=== PATIENT | male | born 1980 | race Caucasian/White ===

== ENCOUNTER 2017-02-07 16:16 | Inpatient (IN) | payer OTHER, BC ==
[2017-02-07] MEDS ORDERED: RX INFO: IV CONTRAST WAS GIVEN 1 EACH MISC MISCELLANE PRN (16:32)
[2017-02-07] MEDS ORDERED: fentaNYL (PF) 50 MCG/ML 2 ML AMP IV STA ×2 (16:33→17:57)
[2017-02-07] MEDS ORDERED: DIPH,PERTUS(ACELL)TETVAC-LF 0.5 ML VIAL IM ONE (16:34)
[2017-02-07 16:42] LABS: Aty Lym Flag Slight; CH 30.2; CHCM 34.6; RDW 13.1 % (11.5-15.5)
[2017-02-07 16:51] LABS: ALT 31 U/L (21-72); AST 33 U/L (17-59); Alcohol <10 mg/dL; Alkaline Phosphatase 46 U/L (38-126); Amylase 49 U/L (30-110); Anion Gap 12 mmol/L; Blood Urea Nitrogen 16 mg/dL (9-20); Carbon Dioxide 23 mmol/L (22-30); Chloride 106 mmol/L (98-107); Glucose 109 mg/dL (74-99); Non-African American GFR(MDRD) >60 (>60 ml/min/1.73 sqM); Sodium 141 mmol/L (137-145); Total Bilirubin 0.6 mg/dL (0.2-1.3); Total Protein 6.8 g/dL (6.3-8.2)
[2017-02-07 17:00] LABS: Creatine Kinase 85 U/L (55-170)
[2017-02-07 17:04] LABS: Partial Thromboplastin Time 22.3 sec (22.0-30.0); Prothrombin Time 10.6 sec (9.0-12.0)
[2017-02-07 17:07] LABS: HCT 43.9 % (39.0-53.0); HDW 2.67; HGB 14.9 gm/dL (13.0-17.5); MCH 29.7 pg (25.0-35.0); MCHC 33.9 g/dL (31.0-37.0); MCV 87.6 fL (80.0-100.0); Mean Platelet Volume 6.5; RBC 5.02 m/uL (4.30-5.90); WBC 7.7 k/uL (3.8-10.6); WBC (Perox) 7.42
[2017-02-07 17:13] LABS: Creatine Kinase MB 0.4 ng/mL (0.0-2.4); Troponin I <0.012 ng/mL (0.000-0.034)
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
[2017-02-07] MEDS ORDERED: ONDANSETRON 4 MG/2 ML VIAL IVP STA (18:10)
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
--- NOTE | 2017-02-07 18:26 | XR ---
EXAMINATION TYPE: XR tibia fibula RT DATE OF EXAM: 02/07/2017 6:13 PM COMPARISON: None HISTORY: Pain TECHNIQUE: 4 views FINDINGS: There is nondisplaced fracture of the distal fibula. There is no dislocation. Knee joint is intact. IMPRESSION: Nondisplaced oblique fracture distal fibula.
--- NOTE | 2017-02-07 18:27 | XR ---
EXAMINATION TYPE: XR foot limited RT DATE OF EXAM: 02/07/2017 6:13 PM COMPARISON: NONE HISTORY: Pain TECHNIQUE: 2 views FINDINGS: Metatarsals are intact. I see no fracture nor dislocation. Toes are intact. Distal fibula f racture is noted. IMPRESSION: Fibula fracture. No acute abnormality of the right foot.
--- NOTE | 2017-02-07 18:30 | XR ---
EXAMINATION TYPE: XR elbow complete LT DATE OF EXAM: 02/07/2017 6:13 PM COMPARISON: NONE HISTORY: Elbow pain TECHNIQUE: 3 views FINDINGS: I see no fracture nor dislocation. Joint spaces are normal. There is no sign of elbow joint effusion. IMPRESSION: Negative left elbow exam.
[2017-02-07] MEDS ORDERED: NALOXONE 0.4 MG/ML 1 ML VIAL IV PRN (18:59)
[2017-02-07] MEDS ORDERED: ONDANSETRON 4 MG/2 ML VIAL IVP PRN (18:59)
[2017-02-07 19:10] LABS: Add Differential Manual Differential
[2017-02-07 19:13] LABS: Manual Review Performed; Nucleated Red Blood Cells 0 /100 WBC (0-0); Total Cells Counted 100
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
[2017-02-07] MEDS: SODIUM CHLORIDE 0.9% 1,000 ML IV SCH (19:37)
[2017-02-07] MEDS: HYDROmorphone 1 MG/ML 1 ML SYRINGE IV PRN ×2 (19:38→21:32)
[2017-02-07 21:40] VITALS: BMI 28.8
[2017-02-07 22:31] LABS: Aty Lym Flag Slight; CH 29.9; CHCM 34.2; HCT 43.3 % (39.0-53.0); HDW 2.67; HGB 14.8 gm/dL (13.0-17.5); MCH 29.9 pg (25.0-35.0); MCHC 34.1 g/dL (31.0-37.0); MCV 87.7 fL (80.0-100.0); Mean Platelet Volume 6.6; RBC 4.94 m/uL (4.30-5.90); RDW 12.9 % (11.5-15.5); WBC 13.3 k/uL (3.8-10.6); WBC (Perox) 13.35
[2017-02-07 23:40] LABS: Add Differential Manual Differential
[2017-02-07 23:44] LABS: Nucleated Red Blood Cells 0 /100 WBC (0-0); Total Cells Counted 100
[2017-02-07 23:45] LABS: Manual Review Performed
[2017-02-07 23:55] LABS: Appearance,Urine Clear (Clear); Bilirubin,Urine Negative (Negative); Glucose,Urine (UA) Negative (Negative); Ketones,Urine Negative (Negative); Leukocyte Esterase,Urine Negative (Negative); Mucus,Urine Rare /hpf; Nitrite,Urine Negative (Negative); PH, Urine 5.5 (5.0-8.0); Particle Count 4086; Protein,Urine 1+ (Negative); RBC,Urine 12 /hpf (0-5); UA Billing (MACRO vs. MICRO) MICRO; Urobilinogen,Urine <2.0 mg/dL (<2.0); WBC,Urine 7 /hpf (0-5)
[2017-02-08] MEDS: HYDROmorphone 1 MG/ML 1 ML SYRINGE IV PRN ×8 (00:21→23:04)
[2017-02-08] MEDS: SODIUM CHLORIDE 0.9% 1,000 ML IV SCH ×2 (05:36→16:49)
[2017-02-08 06:50] LABS: Anion Gap 11 mmol/L; Blood Urea Nitrogen 13 mg/dL (9-20); Calcium 8.8 mg/dL (8.4-10.2); Carbon Dioxide 23 mmol/L (22-30); Chloride 104 mmol/L (98-107); Glucose 113 mg/dL (74-99); Non-African American GFR(MDRD) >60 (>60 ml/min/1.73 sqM); Sodium 138 mmol/L (137-145)
[2017-02-08 07:24] LABS: Aty Lym Flag Slight; CHCM 34.3; HDW 2.63; HGB 13.7 gm/dL (13.0-17.5); MCH 29.5 pg (25.0-35.0); MCHC 33.5 g/dL (31.0-37.0); MCV 87.9 fL (80.0-100.0); Mean Platelet Volume 6.6; RBC 4.66 m/uL (4.30-5.90); RDW 13.2 % (11.5-15.5); WBC 8.8 k/uL (3.8-10.6); WBC (Perox) 9.01
[2017-02-08] MEDS: ACETAMINOPHEN TAB 500 MG TAB PO PRN ×2 (07:54→14:34)
[2017-02-08 08:36] LABS: Add Differential Manual Differential
[2017-02-08 08:38] LABS: Manual Review Performed; Nucleated Red Blood Cells 0 /100 WBC (0-0); Total Cells Counted 100
[2017-02-08 08:39] LABS: RBC Morphology Normal
[2017-02-08 11:52] LABS: Aty Lym Flag Slight; CHCM 34.4; HCT 39.7 % (39.0-53.0); HDW 2.66; HGB 13.1 gm/dL (13.0-17.5); MCHC 33.1 g/dL (31.0-37.0); MCV 87.5 fL (80.0-100.0); Mean Platelet Volume 6.8; RBC 4.53 m/uL (4.30-5.90); RDW 13.1 % (11.5-15.5); WBC 7.2 k/uL (3.8-10.6); WBC (Perox) 8.31
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
[2017-02-08 12:58] LABS: Add Differential Manual Differential
[2017-02-08 13:00] LABS: Manual Review Performed; Nucleated Red Blood Cells 0 /100 WBC (0-0); RBC Morphology Normal; Total Cells Counted 100
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
[2017-02-08] MEDS: KETOROLAC 30 MG/ML 1 ML VIAL IVP PRN ×2 (15:45→21:58)
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
[2017-02-08 17:56] LABS: Aty Lym Flag Slight; CH 30.1; CHCM 34.6; HCT 38.9 % (39.0-53.0); HDW 2.69; HGB 13.2 gm/dL (13.0-17.5); MCH 29.6 pg (25.0-35.0); MCHC 33.9 g/dL (31.0-37.0); MCV 87.1 fL (80.0-100.0); RBC 4.46 m/uL (4.30-5.90); RDW 13.2 % (11.5-15.5); WBC 6.6 k/uL (3.8-10.6); WBC (Perox) 7.41
[2017-02-08 18:31] LABS: Add Differential Manual Differential
[2017-02-08 18:34] LABS: Nucleated Red Blood Cells 0 /100 WBC (0-0); Total Cells Counted 100
[2017-02-08 18:35] LABS: Manual Review Performed; RBC Morphology Normal
[2017-02-08 20:13] VITALS: RESP 18
[2017-02-08] MEDS: FAMOTIDINE 20 MG TAB PO SCH (23:04)
[2017-02-09 00:45] LABS: Aty Lym Flag Slight; CHCM 34.3; HCT 37.2 % (39.0-53.0); HDW 2.65; HGB 12.7 gm/dL (13.0-17.5); MCHC 34.2 g/dL (31.0-37.0); MCV 87.7 fL (80.0-100.0); Mean Platelet Volume 7.3; RBC 4.24 m/uL (4.30-5.90); RDW 13.1 % (11.5-15.5); WBC 6.2 k/uL (3.8-10.6); WBC (Perox) 6.29
[2017-02-09 01:12] LABS: Add Differential Manual Differential
[2017-02-09 01:14] LABS: Manual Review Performed; Nucleated Red Blood Cells 0 /100 WBC (0-0); Reactive Lymphocytes Present; Total Cells Counted 100
[2017-02-09] MEDS: HYDROmorphone 1 MG/ML 1 ML SYRINGE IV PRN ×2 (02:42→05:23)
[2017-02-09] MEDS: SODIUM CHLORIDE 0.9% 1,000 ML IV SCH ×2 (05:25→12:53)
[2017-02-09 06:46] LABS: Aty Lym Flag Slight; CHCM 34.3; HCT 36.8 % (39.0-53.0); HDW 2.68; HGB 12.4 gm/dL (13.0-17.5); MCH 29.7 pg (25.0-35.0); MCHC 33.8 g/dL (31.0-37.0); MCV 87.7 fL (80.0-100.0); Mean Platelet Volume 6.6; RDW 13.1 % (11.5-15.5); WBC (Perox) 6.36
[2017-02-09 06:59] LABS: Anion Gap 7 mmol/L; Blood Urea Nitrogen 12 mg/dL (9-20); Calcium 8.2 mg/dL (8.4-10.2); Carbon Dioxide 25 mmol/L (22-30); Chloride 105 mmol/L (98-107); Glucose 85 mg/dL (74-99); Non-African American GFR(MDRD) >60 (>60 ml/min/1.73 sqM); Sodium 137 mmol/L (137-145)
[2017-02-09 07:09] LABS: Add Differential Manual Differential
[2017-02-09 07:15] LABS: Manual Review Performed; Nucleated Red Blood Cells 0 /100 WBC (0-0); Total Cells Counted 100
[2017-02-09] MEDS: KETOROLAC 30 MG/ML 1 ML VIAL IVP PRN (07:33)
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
[2017-02-09] MEDS: FAMOTIDINE 20 MG TAB PO SCH (09:30)
[2017-02-09] MEDS: HYDROcodone/APAP 7.5-325MG 1 EACH TAB PO PRN ×3 (09:31→16:07)
[2017-02-09 13:10] LABS: Aty Lym Flag Slight; CH 30.1; CHCM 34.5; HCT 39.1 % (39.0-53.0); HDW 2.67; HGB 13.3 gm/dL (13.0-17.5); MCH 29.8 pg (25.0-35.0); MCV 87.5 fL (80.0-100.0); Mean Platelet Volume 6.4; RBC 4.47 m/uL (4.30-5.90); WBC (Perox) 6.45
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
[2017-02-09 14:41] LABS: Add Differential Manual Differential
[2017-02-09 14:45] LABS: Nucleated Red Blood Cells 0 /100 WBC (0-0); Total Cells Counted 100
[2017-02-09 16:00] VITALS: BP 123/71; PULSE 83; TEMP 98.5
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
== END 2017-02-09 16:22 | disposition home or self-care (01) | DRG 815 ==
LOC: EC 16:16 → 6SEL 19:02
PROVIDERS: ADMIT Surgery; ATTEND Surgery
PROC: 3E0234Z Introduction of Serum, Toxoid and Vaccine into Muscle, Percutaneous Approach (ICD-10-PCS; principal; 2017-02-07)
PROC: 2W3LX1Z Immobilization of Right Lower Extremity using Splint (ICD-10-PCS; 2017-02-07)
PROC: 0HQ6XZZ Repair Back Skin, External Approach (ICD-10-PCS; 2017-02-07)
PROC: 0HQEXZZ Repair Left Lower Arm Skin, External Approach (ICD-10-PCS; 2017-02-07)
DX: S36.039A Unspecified laceration of spleen, initial encounter (principal); S32.039A Unspecified fracture of third lumbar vertebra, initial encounter for closed fracture; S21.212A Laceration without foreign body of left back wall of thorax without penetration into thoracic cavity, initial encounter; S32.049A Unspecified fracture of fourth lumbar vertebra, initial encounter for closed fracture; S82.61XA Displaced fracture of lateral malleolus of right fibula, initial encounter for closed fracture; S51.012A Laceration without foreign body of left elbow, initial encounter; R40.2410 Glasgow coma scale score 13-15, unspecified time; J32.9 Chronic sinusitis, unspecified; H91.93 Unspecified hearing loss, bilateral; Z88.0 Allergy status to penicillin; Z86.69 Personal history of other diseases of the nervous system and sense organs; Z23 Encounter for immunization; Z82.49 Family history of ischemic heart disease and other diseases of the circulatory system; Z88.5 Allergy status to narcotic agent; Z87.828 Personal history of other (healed) physical injury and trauma; W23.0XXA Caught, crushed, jammed, or pinched between moving objects, initial encounter; Y92.512 Supermarket, store or market as the place of occurrence of the external cause
CPT/HCPCS: 36415; 70450; 71010; 71260; 72125; 72170; 74177; 80048; 80053; 80306; 80320; 81001; 82150; 82550; 82553; 83690; 84484; 85025; 85610; 85730; 86850; 86900; 86901; 90471; 90715; 93005; 96361; 96374; 96375; 96376; 99291

== ENCOUNTER → 2017-04-20 | Outpatient (CLI) | payer OTHER, BC ==
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
== END | disposition home or self-care (01) ==
LOC: RADMRIMAIN 13:43
PROVIDERS: ATTEND Physical Medicine & Rehabilitation
DX: R90.82 White matter disease, unspecified (principal); F07.81 Postconcussional syndrome
CPT/HCPCS: 70551

== ENCOUNTER → 2017-09-16 | Outpatient (CLI) | payer OTHER, BC ==
--- NOTE | 2017-09-16 10:52 | CT ---
EXAMINATION TYPE: CT iac wo con DATE OF EXAM: 09/16/2017 COMPARISON: CT brain 02/07/2017 HISTORY: 36-year-old male question prior right-sided temporal bone fracture. Patient with headaches, right-sided hearing loss, and bilateral tinnitus. CT DLP: 142.70 mGycm Automated exposure control for dose reduction was used. TECHNIQUE: Contiguous high-resolution axial scanning of the temporal bones performed without contras t. Coronal reformatted images obtained. FINDINGS: There is no abnormality of visualized intracranial structures. The skull base appears normal. Small amount of cerumen within the left external auditory canal. The middle ear cavities and mastoid air cells are well pneumatized. There is no abnormality of middle ear ossicles. The round and oval windows are normal. There is no abnormality of bony labyrinths. The vestibular aqueduct are well visualized. The facial nerve canal is normal bilaterally. The internal auditory canal and meati are symmetrical bilaterally. There is no evidence of fractures. Mild to moderate mucosal thickening right greater than left sphenoid sinuses and right ethmoid air ce lls. Orbits and globes appear intact. Reformatted images confirm above findings. IMPRESSION: Aside from small amount of cerumen in the left external auditory canal and mild to moderate sphenoid and right ethmoid sinus disease, unremarkable temporal bone CT. No evidence for temporal bone fractur e.
== END | disposition home or self-care (01) ==
LOC: RADCTMAIN 09:43
PROVIDERS: ATTEND Otolaryngology
DX: J34.89 Other specified disorders of nose and nasal sinuses (principal); H61.22 Impacted cerumen, left ear
CPT/HCPCS: 70480

== ENCOUNTER → 2022-02-04 | Outpatient (CLI) | payer OTHER ==
--- NOTE | 2022-02-04 10:11 | MR ---
MR right elbow HISTORY: Right elbow pain, trauma 4 weeks prior with pain Under multisequence imaging obtained through the right elbow, no comparisons are not motion is presen t on the exam, artifact There is abnormal signal along the biceps, musculotendinous junction, the biceps tendon shows tear, d iscontinuity in abnormal thickening peripherally abnormal increased intrinsic signal, redundant appea tonya. Triceps tendon shows a normal insertion. There is no evident elbow joint effusion. Subcutaneous edema changes present. Cartilage signal is normal. Bone marrow signal is normal. IMPRESSION: Biceps tendon tear with retraction.
== END | disposition home or self-care (01) ==
LOC: RADMRIMAIN 06:24
PROVIDERS: ATTEND Orthopaedic Surgery Hand Surgery
DX: S46.211A Strain of muscle, fascia and tendon of other parts of biceps, right arm, initial encounter (principal); X58.XXXA Exposure to other specified factors, initial encounter

== ENCOUNTER → 2022-02-06 | Outpatient (CLI) | payer OTHER ==
[2022-02-06 23:48] LABS: Anion Gap 14.4 mmol/L (10.00-18.00); Carbon Dioxide 20.7 mmol/L (20.0-27.5); Potassium 3.7 mmol/L (3.5-5.5)
[2022-02-06 23:49] LABS: Basophils # (A) 0.02 X 10*3/uL (0.00-0.10); Basophils % (A) 0.3 %; Eosinophils # (A) 0.13 X 10*3/uL (0.04-0.35); Eosinophils % (A) 2.2 %; HCT 46.4 % (39.6-50.0); HGB 15.8 g/dL (13.0-17.0); Immature Grans, Automated 0.5 %; Lymphocytes # (A) 1.82 X 10*3/uL (0.90-5.00); Lymphocytes % (A) 30.2 %; MCHC 34.1 g/dL (32.0-37.0); MCV 88.2 fL (80.0-97.0); Mean Platelet Volume 9.8 fL (9.5-12.2); Monocytes # (A) 0.46 X 10*3/uL (0.20-1.00); Monocytes % (A) 7.6 %; NRBC Per 100 WBC 0 /100 WBCS (0.0-0.0); Neutrophils # (A) 3.56 X 10*3/uL (1.80-7.70); Neutrophils % (A) 59.2 %; Platelet Count 246 X 10*3/uL (140-440); RBC 5.26 X 10*6/uL (4.40-5.60); RDW 11.9 % (11.5-14.5); WBC 6.02 X 10*3/uL (4.50-10.00)
== END | disposition home or self-care (01) ==
LOC: LABPAT 13:22
PROVIDERS: ATTEND Orthopaedic Surgery Hand Surgery
DX: Z01.812 Encounter for preprocedural laboratory examination (principal); S46.291A Other injury of muscle, fascia and tendon of other parts of biceps, right arm, initial encounter; X58.XXXA Exposure to other specified factors, initial encounter
CPT/HCPCS: 80051; 85025

== ENCOUNTER 2022-02-12 06:31 | Day surgery (SDC) | payer OTHER ==
--- NOTE | 2022-02-09 10:30 | P.HPOR ---
History of Present Illness H&P Date: 02/09/22 Chief Complaint: Right distal biceps tendon rupture Subjective: This is a 41 year old male that presents today for initial evaluation regarding a right elbow injury that occurred on 01/06/22, patient was lifting a washer and suddenly felt a pop. He was seen at urgent care and xrays were taken which revealed no abnormality. He has bruising and swelling along the medial elbow and arm that has since started to resolve. He has noticed pain/weakness with s upination but is able to flex the elbow at this point. He denies any paresthesias. He is currently unemployed but typically works construction. Physical Examination: RUE: AIN/PIN/Radial/Ulnar/Median motor intact. Radial/Ulnar/Median SILT. 2+/4 Radial/Ulnar pulses palpated. Positive hook test. Mild TTP in antecubital fossa with sustained supination. Lacertus palpated. and appears intact. Impression: 1.) Right distal biceps tendon rupture. Plan: Diagnosis and treatment options were discussed with the patient. We reviewed risks and benefits of operative vs non operative treatment and discussed the functional limitations that non-operative treatment would entail including possible loss of sustained supination strength and flexion strength. I recommend MRI of the elbow to evaluate for partial vs full distal biceps tendon tear. We discussed the complexity of the injury due to the delayed presentation now that he his 4 weeks out from the day of injury. Urgent MRI is ordered and I will contact the patient regarding results to discuss possible treatment options Please CC notes to Dr. Erwin Update MRI of right elbow as obtained showing complete tear of distal biceps tendon with retraction. Risks and benefits of operative vs non operative management were discussed with patient on phone call on 02/05/22 and patient wishes to proceed with surgical intervention. Risks and benefit of surgery including bleeding, infection, damage to surrounding tissue, need for further surgery, paresthesias, and residual numbness were discussed and the patient wished to go forward with surgery. He will be scheduled for a right distal biceps tendon repair utilizing Arthrex distal biceps suture button tension slide technique. -Carter Sinha DO Orthopedic Hand/Upper Extremity Surgeon Past Medical History Past Medical History: Hearing Disorder / Deafness Additional Past Medical History / Comment(s): HX OF VERTIGO, LEFT INGUINAL HERNIA., [place] DAHIANA History of Any Multi-Drug Resistant Organisms: None Reported Additional Past Surgical History / Comment(s): TUBES IN EARS, REPAIR RT EAR DRUM, RT ING HERNIA (CHILD), FINGER REATTACHED. Past Anesthesia/Blood Transfusion Reactions: No Reported Reaction Additional Past Anesthesia/Blood Transfusion Reaction / Comment(s): HX OF VERTIGO Past Psychological History: No Psychological Hx Reported Past Alcohol Use History: Rare Past Drug Use History: None Reported - Past Family History Father Family Medical History: AFIB Additional Family Medical History / Comment(s): ablation Mother Family Medical History: Coronary Artery Disease (CAD) Brother(s) Family Medical History: Myocardial Infarction ([place]) Medications and Allergies Home Medications Medication Instructions Recorded Confirmed Type Acetaminophen Tab [Tylenol Tab] 1,000 mg PO Q6HR PRN 02/07/17 02/07/17 History HYDROcodone/APAP 7.5-325MG [[place] 1 each PO Q4H PRN #60 tab 02/09/17 Rx 7.5] Allergies Allergy/AdvReac Type Severity Reaction Status Date / Time Penicillins Allergy Unknown Unknown Verified 02/07/17 17:14 Childhood codeine AdvReac Unknown Itching Verified 02/07/17 17:14 meperidine HCl [From Demerol] AdvReac Unknown Itching Verified 02/07/17 17:14 Physical Examination Osteopathic Statement: *. No significant issues noted on an osteopathic structural exam other than those noted in the History and Physical/Consult.
[2022-02-10 14:31] VITALS: BMI 31.3
[2022-02-12] MEDS ORDERED: MIDAZOLAM 2 MG/2 ML VIAL IV PRN (06:45)
[2022-02-12] MEDS ORDERED: DEXAMETHASONE SOD PHOSPHATE 4 MG/ML 1 ML VIAL IV ONE (06:45)
[2022-02-12] MEDS ORDERED: KETOROLAC 15 MG/ML 1 ML VIAL IVP SCH (06:45)
[2022-02-12] MEDS ORDERED: LACTATED RINGERS 1,000 ML IV SCH (06:45)
[2022-02-12] MEDS ORDERED: ONDANSETRON 4 MG/2 ML VIAL IVP ONE (06:45)
[2022-02-12] MEDS ORDERED: LIDOCAINE 1% (10MG/ML) FOR IV START INTRADERMA PRN (06:45)
[2022-02-12] MEDS ORDERED: METOCLOPRAMIDE 5 MG/ML 2 ML VIAL IVP PRN (07:00)
[2022-02-12] MEDS ORDERED: HYDROmorphone 0.5 MG/0.5 ML SYRINGE IVP PRN (07:00)
[2022-02-12] MEDS ORDERED: fentaNYL (PF) 50 MCG/ML 2 ML AMP IVP PRN (07:00)
[2022-02-12] MEDS ORDERED: LIDOCAINE 1% (10MG/ML) FOR IV START SQ ONE (07:10)
[2022-02-12] MEDS ORDERED: fentaNYL (PF) 50 MCG/ML 2 ML AMP IVP ONE (07:42)
[2022-02-12] MEDS ORDERED: MIDAZOLAM 2 MG/2 ML VIAL IV ONE (07:42)
[2022-02-12] MEDS ORDERED: BUPIVACAINE (PF) 0.25% 30 ML VIAL MISCELLANE ONE (07:53)
[2022-02-12] MEDS ORDERED: fentaNYL (PF) 50 MCG/ML 2 ML AMP ONE (07:54)
[2022-02-12] MEDS ORDERED: ROPIVACAINE 5 MG/ML 30 ML VIAL ONE (07:54)
[2022-02-12] MEDS ORDERED: PROPOFOL 10 MG/ML 20 ML VIAL IV ONE (07:54)
--- NOTE | 2022-02-12 09:54 | P.ANPRN ---
Procedure Note - Anesthesia - Nerve Block Performed Right Interscalene Single Time Out Performed: Yes ([id number]) Date of Procedure: 02/12/22 Procedure Start Time: 07:42 Procedure Stop Time: 07:48 Location of Patient: PreOp Indication: Acute Post-Operative Pain, Requested by Surgeon Specifically requested for management of pain by DrMable: Carter Sinha Sedation Type: Sedate with meaningful contact maintained Preparation: Sterile Prep Position: Supine Catheter: None Needle Types: Pajunk Needle Gauge: 21 (4in) Ultrasound used to visualize needle placement: Yes Ultrasound used to observe medication spread: Yes Injectate: 0.5% Ropivacaine (see comment for volume) (30cc) Blood Aspirated: No Pain Paresthesia on Injection Noted: No Resistance on Injection: Normal Image Stored and Saved: Yes Events: Uneventful and Well Tolerated
[2022-02-12 10:20] VITALS: TEMP 97.5
[2022-02-12 10:21] VITALS: RESP 16
[2022-02-12] MEDS ORDERED: KETOROLAC 15 MG/ML 1 ML VIAL IVP ONE (10:26)
[2022-02-12 11:15] VITALS: BP 128/88; PULSE 82
--- NOTE | 2022-02-12 18:11 | P.OP ---
Date of Procedure: 02/12/22 Preoperative Diagnosis: Right distal biceps tendon rupture, chronic. Postoperative Diagnosis: Right distal biceps tendon rupture, chronic. Procedure(s) Performed: Reinsertion of right distal biceps tendon rupture with lacertus fibrosis autograft. [id number] Implants: Arthrex distal biceps cortical button Anesthesia: ROBERT, regional Surgeon: Carter Sinha Assistant Production Manager #1: Romulo Lara Estimated Blood Loss (ml): 10 Pathology: none sent Condition: stable Disposition: PACU Description of Procedure: This is a 41 year old male with a history of a right distal biceps tendon rupture that occurred 1 month prior to original presentation after living a heavy object. He presents today for a right distal biceps tendon avulsion repair. Risks and benefits of surgery were discussed with the patient including bleeding, damage to surrounding tissue, infection, paresthesias, need for further surgery as well as risks of anesthesia including pulmonary embolism and even and the patient wished to proceed with surgical intervention. The patients was seen in the pre-operative area by myself. Consent and H&P were completed and updated. The correct extremity was marked in the pre-operative area by myself and all other questions were answered. Patient received an upper extremity nerve block by the department of anesthesia. He then was brought to the operating room by the department of anesthesia. He was transferred to the operative table and a rolling hand table was brought to the side of the operative extremity. The patient was then drifted off to sleep by the department of anesthesia. A nonsterile tourniquet was then applied to the operative extremity and the right upper extremity was then prepped and draped in normal sterile fashion. Pre-operative time out was performed indicating the correct patient, procedure and laterality. All in the room agreed. Pre-operative antibiotics were given prior to skin incision. The operative extremity was the exsanguinated with an esmarch bandage and the tourniquet was inflated to 250mmHg . 15 blade scalpel was used to make a 4cm transverse incision 3 cm distal to the anterior elbow antecubital fossa crease. Blunt dissection was then performed in subcutaneous tissues, retractors were placed taking care to not put excessive force laterally to avoid pressure on the LABCN. Seroma was identified and the distal end of the biceps tendon was identified retracted to the antecubital fossa with extensive adhesions formed to the surrounding vascular structures which were carefully dissected, the end of the tendon was was very degenerative looking and frayed, non vital edges were removed and the tip was then grasped with an Stacy clamp. Edges were trimmed of degenerative tissue to create a more profiled distal tip. Due to the amount of non-viable tenon remaining decision was made to augment with the lacertus fibrosis. The lacertus was detached from surrounding muscle and then wrapped around the distal biceps tendon creating additional length and bulk to the tendon. Lacertus was secured using multiple 0 Vicryl sutures. A number 2 looped fiberwire was then used to sequentially grasp the tendon starting 2.5cm proximal to the distal end. The last stitch was placed in a locking fashion. Tendon sizer was then utilized the distal tendon was able to fit through a 7mm hole. Attention was then brought back to the antecubital fossa and deeper dissection was taken down to the radial tuberosity. Tendon remnants were debrided carefully with rongeur. The forearm was then maximally supinated to reveal the bicipital tuberosity on the radius in order to move the PIN nerve as far radial as possible. A 3.2mm guide pin was then inserted bicortically into the radial tuberosity aimed 30 degrees ulnarly to avoid PIN damage. Correct placement was then confirmed on flouroscopy. A 8mm drill was then used to drill the near cortex only. The wound was then copiously irrigated. The free ends of the suture where then passed through the arthrex cortical button to engage the tension slide mechanism. Cortical button was placed into the button inserted and inserted through the drill hole and deployed. Tension was then applied to snug the cortical button against the dorsal radius confirming the button had flipped correctly. The free suture limbs were then tensioned to fully dock the tendon in the bone tunnel. A free needle was then used to pass one limb through the tendon and a knot was tied. Mini C arm was then used to confirm that the button had flipped. The wound was then irrigated. Closure was performed with interrupted 4-0 monocryl suture followed by a running subcuticular suture. Exofin glue was then applied to the wound. 4x4s, webril and a posterior splint with the elbow in slight flexion was applied. The tourniquet was let down and the hand had immediate normal perfusion. The patient was then woken and transferred to PACU in stable condition. Romulo DILLON was present for the case and aided in assistance in hardware placement and protection of vital neurovascular structures. Carter Sinha DO Orthopedic Hand/Upper Extremity Surgeon
== END 2022-02-12 11:41 | disposition home or self-care (01) ==
LOC: OR 06:31
PROVIDERS: ATTEND Orthopaedic Surgery Hand Surgery
DX: S46.211A Strain of muscle, fascia and tendon of other parts of biceps, right arm, initial encounter (principal); F90.1 Attention-deficit hyperactivity disorder, predominantly hyperactive type; K21.9 Gastro-esophageal reflux disease without esophagitis
CPT/HCPCS: 24342; 64415; 76942; C1713; J2250; J1100; J0690; J2405; J3010; J2795; J1885; J2704

== ENCOUNTER → 2022-11-20 | Outpatient (CLI) | payer OTHER ==
[2022-11-20 23:09] LABS: Basophils # (A) 0.04 X 10*3/uL (0.00-0.10); Basophils % (A) 0.6 %; Eosinophils # (A) 0.12 X 10*3/uL (0.04-0.35); Eosinophils % (A) 1.8 %; HCT 45.5 % (39.6-50.0); HGB 14.9 g/dL (13.0-17.0); Immature Grans, Automated 0.5 %; Lymphocytes # (A) 1.73 X 10*3/uL (0.90-5.00); Lymphocytes % (A) 26.5 %; MCH 28.8 pg (27.0-32.0); MCHC 32.7 g/dL (32.0-37.0); Mean Platelet Volume 9.2 fL (9.5-12.2); Monocytes # (A) 0.52 X 10*3/uL (0.20-1.00); NRBC Per 100 WBC 0 /100 WBCS (0.0-0.0); Neutrophils # (A) 4.08 X 10*3/uL (1.80-7.70); Neutrophils % (A) 62.6 %; Platelet Count 256 X 10*3/uL (140-440); RBC 5.17 X 10*6/uL (4.40-5.60); RDW 12.3 % (11.5-14.5); WBC 6.52 X 10*3/uL (4.50-10.00)
[2022-11-20 23:27] LABS: ALT 22 U/L (10-49); AST 15 U/L (14-35); African American GFR (CKD) 73.3 (60.0-200.0); Albumin 4.5 g/dL (3.8-4.9); Albumin/Globulin Ratio 2.26 (1.60-3.17); Alkaline Phosphatase 50 U/L (41-126); BUN/Creat Ratio 12.06 Ratio (12.00-20.00); Blood Urea Nitrogen 16.4 mg/dL (9.0-27.0); Calcium 9.3 mg/dL (8.7-10.3); Carbon Dioxide 24.2 mmol/L (20.0-27.5); Chloride 105 mmol/L (96-109); Glucose 101 mg/dL (70-110); LDL Cholesterol,Calculated 112.8 mg/dL (0.0-131.0); Non-African American GFR(CKD) 63.3 (60.0-200.0); Potassium 4.5 mmol/L (3.5-5.5); Sodium 139 mmol/L (135-145); Total Protein 6.5 g/dL (6.2-8.2)
== END | disposition home or self-care (01) ==
LOC: LABWHC1 14:20
PROVIDERS: ATTEND Internal Medicine
DX: Z00.01 Encounter for general adult medical examination with abnormal findings (principal); Z13.220 Encounter for screening for lipoid disorders; Z72.51 High risk heterosexual behavior
CPT/HCPCS: 36415; 80053; 80061; 84403; 85025

== ENCOUNTER 2023-06-16 09:18 | Emergency (ER) | payer OTHER ==
[2023-06-16] MEDS ORDERED: IBUPROFEN 600 MG TAB PO STA (10:22)
--- NOTE | 2023-06-16 10:57 | XR ---
EXAMINATION TYPE: XR chest 2V DATE OF EXAM: 06/16/2023 10:47 AM COMPARISON: Chest radiographs from 02/07/2017 TECHNIQUE: XR chest 2V Frontal and lateral views of the chest. CLINICAL INDICATION:Male, 42 years old with history of fever; FINDINGS: Lungs/Pleura: There is no evidence of pleural effusion, focal consolidation, or pneumothorax. Pulmonary vascularity: Unremarkable. Heart/mediastinum: Cardiomediastinal silhouette is unremarkable. Musculoskeletal: No acute osseous pathology. IMPRESSION: No acute cardiopulmonary disease/process.
--- NOTE | 2023-06-16 10:58 | ED ---
Fever HPI - General Chief Complaint: Fever Stated Complaint: Hot Cold Flashs, Body Aches Time Seen by Provider: 06/16/23 09:39 Source: patient, RN notes reviewed Mode of arrival: ambulatory Limitations: no limitations - History of Present Illness Initial Comments: 42-year-old male presents emergency Department with chief complaint of fever cough and cold-like symptoms. Patient states that since last 2 days. Patient states that he has bodyaches slight cough and mild sore throat. He denies any chest pain he does have a productive cough or shortness of breath no abdominal pain no flank pain denies any neck pain or neck stiffness. - Related Data Home Medications Medication Instructions Recorded Confirmed Dextroamphetamine/Amphetamine 30 mg PO BID 02/12/22 02/12/22 [Dextroamp-Amphetamin 30 mg Tab] Previous Rx's Medication Instructions Recorded HYDROcodone/APAP 7.5-325MG [[place] 1 tab PO Q6HR PRN 3 Days #24 tab 02/12/22 7.5-325] Allergies Allergy/AdvReac Type Severity Reaction Status Date / Time Penicillins Allergy Unknown Unknown Verified 06/16/23 09:33 Childhood codeine AdvReac Unknown Itching Verified 06/16/23 09:33 meperidine HCl [From Demerol] AdvReac Unknown Itching Verified 06/16/23 09:33 Review of Systems ROS Statement: Those systems with pertinent positive or pertinent negative responses have been documented in the HPI. ROS Other: All systems not noted in ROS Statement are negative. Past Medical History Past Medical History: Hearing Disorder / Deafness Additional Past Medical History / Comment(s): HX OF VERTIGO, LEFT INGUINAL HERNIA., [place], History of Any Multi-Drug Resistant Organisms: None Reported Past Surgical History: Orthopedic Surgery Additional Past Surgical History / Comment(s): TUBES IN EARS, REPAIR RT EAR DRUM, RT ING HERNIA (CHILD), FINGER REATTACHED. Past Anesthesia/Blood Transfusion Reactions: No Reported Reaction Additional Past Anesthesia/Blood Transfusion Reaction / Comment(s): HX OF VERTIGO Past Psychological History: No Psychological Hx Reported, Anxiety Smoking Status: Never smoker Past Alcohol Use History: None Reported Past Drug Use History: None Reported - Past Family History Father Family Medical History: AFIB Additional Family Medical History / Comment(s): ablation Mother Family Medical History: Cancer, Coronary Artery Disease (CAD) Brother(s) Family Medical History: Myocardial Infarction ([place]) General Exam Limitations: no limitations General appearance: alert, in no apparent distress Head exam: Present: atraumatic, normocephalic, normal inspection Eye exam: Present: normal appearance, PERRL, EOMI. Absent: scleral icterus, conjunctival injection, periorbital swelling ENT exam: Present: mucous membranes moist. Absent: normal exam, normal oropharynx (Erythema) Neck exam: Present: normal inspection, full ROM. Absent: tenderness, meningismus, lymphadenopathy Respiratory exam: Present: normal lung sounds bilaterally. Absent: respiratory distress, wheezes, rales, rhonchi, stridor Cardiovascular Exam: Present: normal rhythm, tachycardia, normal heart sounds. Absent: systolic murmur, diastolic murmur, rubs, gallop, clicks GI/Abdominal exam: Present: soft, normal bowel sounds. Absent: distended, tenderness, guarding, rebound, rigid Back exam: Absent: CVA tenderness (R), CVA tenderness (L) Neurological exam: Present: alert Course Vital Signs 06/16/23 06/16/23 06/16/23 09:26 09:42 11:11 Temperature 100.7 F H 98.3 F Pulse Rate 105 H Respiratory 18 16 Rate Blood Pressure 144/84 O2 Sat by Pulse 94 L Oximetry 06/16/23 11:39 Temperature 98.5 F Pulse Rate 93 Respiratory 18 Rate Blood Pressure 136/83 O2 Sat by Pulse 97 Oximetry Medical Decision Making - Medical Decision Making Was pt. sent in by a medical professional or institution (, PA, BUYER ASSISTANT, urgent care, hospital, or intermediate...) When possible be specific @ -Urgent care Did you speak to anyone other than the patient for history (EMS, parent, family, police, friend...)? What history was obtained from this source @ -No Did you review nursing and triage notes (agree or disagree)? Why? @ -I reviewed and agree with nursing and triage notes Were old charts reviewed (outside hosp., previous admission, EMS record, old EKG, old radiological studies, urgent care reports/EKG's, intermediate records)? Report findings @ -No old charts were reviewed Differential Diagnosis (chest pain, altered mental status, abdominal pain women, abdominal pain men, vaginal bleeding, weakness, fever, dyspnea, syncope, headache, dizziness, GI bleed, back pain, seizure, CVA, palpatations, mental health, musculoskeletal)? @ -Differential Fever: Pneumonia, viral URI, endocarditis, myocarditis, pericarditis, otitis, sinusitis, peritonsillar Abscess, retropharyngeal Abscess, epiglottitis, peritonitis, appendicitis, Evangelina cystitis, diverticulitis, hepatitis, colitis, UTI, PID, TOA, pyelonephritis, prostatitis, epididymitis, meningitis, encephalitis, pulmonary embolism, CVA, thyroid storm, pancreatitis, adrenal crisis, cavernous sinus thrombosis, this is not meant to be an all-inclusive list. le EKG interpreted by me (3pts min.). @ -None X-rays interpreted by me (1pt min.). @ -Chest x-ray shows no acute process. CT interpreted by me (1pt min.). @ -None done U/S interpreted by me (1pt. min.). @ -None done What testing was considered but not performed or refused? (CT, X-rays, U/S, labs)? Why? @ -Consider laboratory studies What meds were considered but not given or refused? Why? @ -None Did you discuss the management of the patient with other professionals (professionals i.e. , PA, BUYER ASSISTANT, lab, RT, psych nurse, dialysis social worker, financial intern, teacher, hazard mitigation officer, rehabilitation case coordinator)? Give summary @ -No Was smoking cessation discussed for >3mins.? @ -No Was critical care preformed (if so, how long)? @ -No Were there social determinants of health that impacted care today? How? (Homelessness, low income, unemployed, alcoholism, drug addiction, transportation, low edu. Level, literacy, decrease access to med. care, skilled nursing, rehab)? @ -No Was there de-escalation of care discussed even if they declined (Discuss DNR or withdrawal of care, Hospice)? DNR status @ -No What co-morbidities impacted this encounter? (DM, HTN, Smoking, COPD, CAD, Cancer, CVA, ARF, Chemo, Hep., AIDS, mental health diagnosis, sleep apnea, morbid obesity)? @ -None Was patient admitted / discharged? Hospital course, mention meds given and route, prescriptions, significant lab abnormalities, going to OR and other pertinent info. @ -Discharge patient is covid 19 positive, strep negative x-rays unremarkable. Vitals are stable. Patient is discharged with supportive treatment return parameters were discussed. Undiagnosed new problem with uncertain prognosis? @ -No Drug Therapy requiring intensive monitoring for toxicity (Heparin, Nitro, Insulin, Cardizem)? @ -No Were any procedures done? @ -No Diagnosis/symptom? @ -covid 19 Acute, or Chronic, or Acute on Chronic? @ -Acute Uncomplicated (without systemic symptoms) or Complicated (systemic symptoms)? @ -complicated Side effects of treatment? @ -No Exacerbation, Progression, or Severe Exacerbation? @ -No Poses a threat to life or bodily function? How? (Chest pain, [place], [place], pneumonia, PE, COPD, DKA, ARF, appy, cholecystitis, CVA, Diverticulitis, Homicidal, Suicidal, threat to staff... and all critical care pts) @ -No - Lab Data Lab Results 06/16/23 06/16/23 Range/Units 10:33 10:33 Coronavirus (PCR) Detected A (Not Detectd) Group A Strep (PCR) NOT DETECTED (Not Detectd) Disposition Clinical Impression: COVID-19 Disposition: HOME SELF-CARE Condition: Stable Instructions (If sedation given, give patient instructions): COVID-19 (Coronavirus Disease 2019) (ED) Additional Instructions: Please return to the Emergency Department if symptoms worsen or any other concerns. Is patient prescribed a controlled substance at d/c from ED?: No Referrals: None,Stated [Primary Care Provider] - 1-2 days Time of Disposition: 11:26
[2023-06-16 11:41] VITALS: BP 136/83; PULSE 93; RESP 18; TEMP 98.5
== END 2023-06-16 11:39 | disposition home or self-care (01) ==
LOC: EC 09:18
DX: U07.1 COVID-19 (principal); Z88.0 Allergy status to penicillin; Z88.5 Allergy status to narcotic agent
CPT/HCPCS: 71046; 87635; 87651; 99284

== ENCOUNTER 2024-07-13 03:24 | Emergency (ER) | payer OTHER ==
[2024-07-13 03:27] VITALS: TEMP 97.8
--- NOTE | 2024-07-13 03:40 | ED ---
Back Pain HPI <Maxime Frank - Last Filed: 07/13/24 07:55> - General Source: patient, RN notes reviewed, old records reviewed Limitations: no limitations - History of Present Illness MD Complaint: back pain -: hour(s) Similar Symptoms Previously: Yes Place: home Radiation: groin Severity: severe Severity scale (1-10): 10 Quality: stabbing Consistency: constant Improves With: none Worsens With: none Associated Symptoms: weakness <Rob Mooney - Last Filed: 07/15/24 22:49> - General Chief Complaint: Back Pain/Injury Stated Complaint: Right flank pain Time Seen by Provider: 07/13/24 03:25 - History of Present Illness Initial Comments: This is a 43-year-old male to the ER for evaluation of back pain right-sided flank pain right-sided abdominal pain he had a bout of this pain a few days ago and is severe tonight woke him from sleep severe pain rating to his groin pain to his right lower quadrant rating to his anterior abdomen. Patient has positive nausea no vomiting no fevers no recent bowel or bladder issues. Patient was seen in primary care office had a urinalysis done showing blood (Rob Mooney) - Related Data Home Medications Medication Instructions Recorded Confirmed Dextroamphetamine/Amphetamine 30 mg PO BID 02/12/22 02/12/22 [Dextroamp-Amphetamin 30 mg Tab] Previous Rx's Medication Instructions Recorded HYDROcodone/APAP 7.5-325MG [[place] 1 tab PO Q6HR PRN 3 Days #24 tab 02/12/22 7.5-325] HYDROcodone/APAP 5-325MG [[place] 1 tab PO Q6HR PRN #12 tab 07/13/24 5-325] Ibuprofen [Motrin] 600 mg PO Q8HR PRN #24 tab 07/13/24 Tamsulosin [Flomax] 0.4 mg PO DAILY #7 cap 07/13/24 Allergies Allergy/AdvReac Type Severity Reaction Status Date / Time Penicillins Allergy Unknown Unknown Verified 07/13/24 03:27 Childhood codeine AdvReac Unknown Itching Verified 07/13/24 03:27 meperidine HCl [From Demerol] AdvReac Unknown Itching Verified 07/13/24 03:27 Review of Systems ROS Other: All systems not noted in ROS Statement are negative. <Maxime Frank Sheyla - Last Filed: 07/13/24 07:55> ROS Other: All systems not noted in ROS Statement are negative. <TereRob elizalde Colby - Last Filed: 07/15/24 22:49> ROS Statement: Those systems with pertinent positive or pertinent negative responses have been documented in the HPI. Past Medical History Past Medical History: Hearing Disorder / Deafness Additional Past Medical History / Comment(s): HX OF VERTIGO, LEFT INGUINAL HERNIA., [place] DAHIANA, History of Any Multi-Drug Resistant Organisms: None Reported Past Surgical History: Orthopedic Surgery Additional Past Surgical History / Comment(s): TUBES IN EARS, REPAIR RT EAR DRUM, RT ING HERNIA (CHILD), FINGER REATTACHED. Past Anesthesia/Blood Transfusion Reactions: No Reported Reaction Additional Past Anesthesia/Blood Transfusion Reaction / Comment(s): HX OF VERTIGO Past Psychological History: No Psychological Hx Reported, Anxiety Smoking Status: Never smoker Past Alcohol Use History: None Reported Past Drug Use History: None Reported - Past Family History Father Family Medical History: AFIB Additional Family Medical History / Comment(s): ablation Mother Family Medical History: Cancer, Coronary Artery Disease (CAD) Brother(s) Family Medical History: Myocardial Infarction (NH) <Rob Mooney - Last Filed: 07/15/24 22:49> General Exam Limitations: no limitations General appearance: alert, in no apparent distress Head exam: Present: atraumatic, normocephalic, normal inspection Eye exam: Present: normal appearance, PERRL, EOMI. Absent: scleral icterus, conjunctival injection, periorbital swelling ENT exam: Present: normal exam, mucous membranes moist Neck exam: Present: normal inspection. Absent: tenderness, meningismus, lymphadenopathy Respiratory exam: Present: normal lung sounds bilaterally. Absent: respiratory distress, wheezes, rales, rhonchi, stridor Cardiovascular Exam: Present: regular rate, normal rhythm, normal heart sounds. Absent: systolic murmur, diastolic murmur, rubs, gallop, clicks GI/Abdominal exam: Present: soft, normal bowel sounds. Absent: distended, t enderness, guarding, rebound, rigid Extremities exam: Present: normal inspection, full ROM, normal capillary refill. Absent: tenderness, pedal edema, joint swelling, calf tenderness Back exam: Present: normal inspection Neurological exam: Present: alert, oriented X3, CN II-XII intact Psychiatric exam: Present: normal affect, normal mood Skin exam: Present: warm, dry, intact, normal color. Absent: rash <Rob Mooney - Last Filed: 07/15/24 22:49> Course <Rob Mooney - Last Filed: 07/15/24 22:49> Vital Signs 07/13/24 07/13/24 07/13/24 03:24 03:49 05:12 Temperature 97.8 F Pulse Rate 67 61 60 Respiratory 18 16 18 Rate Blood Pressure 152/91 138/94 140/97 O2 Sat by Pulse 99 97 99 Oximetry 07/13/24 07/13/24 06:47 08:20 Temperature Pulse Rate 62 81 Respiratory 16 16 Rate Blood Pressure 121/86 116/74 O2 Sat by Pulse 96 98 Oximetry - Reevaluation(s) Reevaluation #1: 07/13/24 06:27 Record is reviewed (Rob Mooney) Reevaluation #2: 07/13/24 06:28 Patient symptoms are improved here in the ER (Rob Mooney) Medical Decision Making - Lab Data Result diagrams: 07/13/24 05:08 07/13/24 05:08 <Maxime Frank - Last Filed: 07/13/24 07:55> - Lab Data Result diagrams: 07/13/24 05:08 07/13/24 05:08 <Rob Mooney - Last Filed: 07/15/24 22:49> - Medical Decision Making Was pt. sent in by a medical professional or institution (, PA, [employer], urgent care, hospital, or care home...) When possible be specific @ -No Did you speak to anyone other than the patient for history (EMS, parent, family, police, friend...)? What history was obtained from this source @ -No Did you review nursing and triage notes (agree or disagree)? Why? @ -I reviewed and agree with nursing and triage notes Were old charts reviewed (outside hosp., previous admission, EMS record, old EKG, old radiological studies, urgent care reports/EKG's, care home records)? Report findings @ -No old charts were reviewed Differential Abdominal Pain Men: Appendicitis, cholecystitis, diverticulosis, ischemic bowel, pancreatitis, hepatitis, UTI, gastroenteritis, AAA, incarcerated hernia, bowel obstruction, constipation, inflammatory bowel, hepatitis, peptic ulcer disease, splenic infarction, perforated viscus, testicular torsion, this is not meant to be an all-inclusive list EKG interpreted by me (3pts min.). @ -As above X-rays interpreted by me (1pt min.). @ -None done CT interpreted by me (1pt min.). @CT abdomen pelvis shows mild right-sided hydronephrosis with obstructing stone at the UVJ measuring 4 mm U/S interpreted by me (1pt. min.). @ -None done What testing was considered but not performed or refused? (CT, X-rays, U/S, labs)? Why? @ -None What meds were considered but not given or refused? Why? @ -None Did you discuss the management of the patient with other professionals (professionals i.e. , PA, [employer], lab, RT, psych nurse, oncology social worker, gym manager, teacher, penal officer, case coordinator)? Give summary @ -No Was smoking cessation discussed for >3mins.? @ -No Was critical care preformed (if so, how long)? @ -No Were there social determinants of health that impacted care today? How? (H omelessness, low income, unemployed, alcoholism, drug addiction, transportation, low edu. Level, literacy, decrease access to med. care, [facility], rehab)? @ -No Was there de-escalation of care discussed even if they declined (Discuss DNR or withdrawal of care, Hospice)? DNR status @ -No What co-morbidities impacted this encounter? (DM, HTN, Smoking, COPD, CAD, Cancer, CVA, ARF, Chemo, Hep., AIDS, mental health diagnosis, sleep apnea, morbid obesity)? @ -None Was patient admitted / discharged? Hospital course, mention meds given and route, prescriptions, significant lab abnormalities, going to OR and other pertinent info. @43-year-old male with right flank pain concerning for kidney stone. Patient has normal CBC, normal CMP, 5 red cells on urinalysis. CT confirms 4 mm stone at the right UVJ. Patient's pain is controlled well in the emergency department. He is given a urine strainer, Flomax, pain control and given urology follow-up. Return parameters are discussed. Undiagnosed new problem with uncertain prognosis? @ -No Drug Therapy requiring intensive monitoring for toxicity (Heparin, Nitro, Insulin, Cardizem)? @ -No Were any procedures done? @ -No Diagnosis/symptom? @ -[Renal colic, obstructing kidney stone Acute, or Chronic, or Acute on Chronic? @ -Acute Uncomplicated (without systemic symptoms) or Complicated (systemic symptoms)? @ -[default Side effects of treatment? @ -No Exacerbation, Progression, or Severe Exacerbation? @ -No Poses a threat to life or bodily function? How? (Chest pain, [place], NH, pneumonia, PE, COPD, DKA, ARF, appy, cholecystitis, CVA, Diverticulitis, Homicidal, Suicidal, threat to staff... and all critical care pts) @ -No (Maxime Frank) - Lab Data Lab Results 07/13/24 07/13/24 07/13/24 Range/Units 05:08 05:08 05:08 WBC 6.9 (3.8-10.6) k/uL RBC 5.18 (4.30-5.90) m/uL Hgb 15.3 (13.0-17.5) gm/dL Hct 45.1 (39.0-53.0) % MCV 87.1 (80.0-100.0) fL MCH 29.6 (25.0-35.0) pg MCHC 34.0 (31.0-37.0) g/dL RDW 13.1 (11.5-15.5) % Plt Count 236 (150-450) k/uL MPV 7.1 Neutrophils % 59 % Lymphocytes % 25 % Monocytes % 8 % Eosinophils % 4 % Basophils % 0 % Neutrophils # 4.1 (1.3-7.7) k/uL Lymphocytes # 1.7 (1.0-4.8) k/uL Monocytes # 0.6 (0-1.0) k/uL Eosinophils # 0.2 (0-0.7) k/uL Basophils # 0.0 (0-0.2) k/uL PT 11.2 (10.0-12.5) sec INR 1.0 (<1.2) APTT 25.3 (22.0-30.0) sec Sodium 139 (137-145) mmol/L Potassium 4.1 (3.5-5.1) mmol/L Chloride 107 (98-107) mmol/L Carbon Dioxide 24 (22-30) mmol/L Anion Gap 8 mmol/L BUN 14 (9-20) mg/dL Creatinine 1.13 (0.66-1.25) mg/dL Est GFR (CKD-EPI)AfAm >90 (>60 ml/min/1.73 sqM) Est GFR (CKD-EPI)NonAf 79 (>60 ml/min/1.73 sqM) Glucose 97 (74-99) mg/dL Plasma Lactic Acid Lobo (0.7-2.0) mmol/L Calcium 9.4 (8.4-10.2) mg/dL Total Bilirubin 0.5 (0.2-1.3) mg/dL AST 30 (17-59) U/L ALT 31 (4-49) U/L Alkaline Phosphatase 51 (38-126) U/L Total Protein 6.6 (6.3-8.2) g/dL Albumin 4.1 (3.5-5.0) g/dL Amylase 47 (30-110) U/L Lipase 118 (23-300) U/L Urine Color Urine Appearance (Clear) Urine pH (5.0-8.0) Ur Specific [place] (1.001-1.035) Urine Protein (Negative) Urine Glucose (UA) (Negative) Urine Ketones (Negative) Urine Blood (Negative) Urine Nitrite (Negative) Urine Bilirubin (Negative) Urine Urobilinogen (<2.0) mg/dL Ur Leukocyte Esterase (Negative) Urine RBC (0-5) /hpf Urine WBC (0-5) /hpf Hyaline Casts (0-2) /lpf Urine Mucus (None) /hpf 07/13/24 07/13/24 Range/Units 05:08 07:22 WBC (3.8-10.6) k/uL RBC (4.30-5.90) m/uL Hgb (13.0-17.5) gm/dL Hct (39.0-53.0) % MCV (80.0-100.0) fL MCH (25.0-35.0) pg MCHC (31.0-37.0) g/dL RDW (11.5-15.5) % Plt Count (150-450) k/uL MPV Neutrophils % % Lymphocytes % % Monocytes % % Eosinophils % % Basophils % % Neutrophils # (1.3-7.7) k/uL Lymphocytes # (1.0-4.8) k/uL Monocytes # (0-1.0) k/uL Eosinophils # (0-0.7) k/uL Basophils # (0-0.2) k/uL PT (10.0-12.5) sec INR (<1.2) APTT (22.0-30.0) sec Sodium (137-145) mmol/L Potassium (3.5-5.1) mmol/L Chloride (98-107) mmol/L Carbon Dioxide (22-30) mmol/L Anion Gap mmol/L BUN (9-20) mg/dL Creatinine (0.66-1.25) mg/dL Est GFR (CKD-EPI)AfAm (>60 ml/min/1.73 sqM) Est GFR (CKD-EPI)NonAf (>60 ml/min/1.73 sqM) Glucose (74-99) mg/dL Plasma Lactic Acid Lobo 0.9 (0.7-2.0) mmol/L Calcium (8.4-10.2) mg/dL Total Bilirubin (0.2-1.3) mg/dL AST (17-59) U/L ALT (4-49) U/L Alkaline Phosphatase (38-126) U/L Total Protein (6.3-8.2) g/dL Albumin (3.5-5.0) g/dL Amylase (30-110) U/L Lipase (23-300) U/L Urine Color Colorless Urine Appearance Clear (Clear) Urine pH 5.5 (5.0-8.0) Ur Specific [place] 1.010 (1.001-1.035) Urine Protein Negative (Negative) Urine Glucose (UA) Negative (Negative) Urine Ketones Negative (Negative) Urine Blood Small H (Negative) Urine Nitrite Negative (Negative) Urine Bilirubin Negative (Negative) Urine Urobilinogen <2.0 (<2.0) mg/dL Ur Leukocyte Esterase Negative (Negative) Urine RBC 5 (0-5) /hpf Urine WBC <1 (0-5) /hpf Hyaline Casts 1 (0-2) /lpf Urine Mucus Occasional H (None) /hpf Disposition Is patient prescribed a controlled substance at d/c from ED?: No Time of Disposition: 07:57 <AyakamilviaMaxime Sheyla - Last Filed: 07/13/24 07:55> Is patient prescribed a controlled substance at d/c from ED?: No <Rob Mooney - Last Filed: 07/15/24 22:49> Clinical Impression: Renal colic, Calculus of kidney Disposition: HOME SELF-CARE Condition: Good Instructions (If sedation given, give patient instructions): Kidney Stones (ED), Renal Colic (ED) Prescriptions: Tamsulosin [Flomax] 0.4 mg PO DAILY #7 cap Ibuprofen [Motrin] 600 mg PO Q8HR PRN #24 tab PRN Reason: Pain HYDROcodone/APAP 5-325MG [[place] 5-325] 1 tab PO Q6HR PRN #12 tab PRN Reason: Pain Referrals: Jasmina Erwin MD [Primary Care Provider] - 1-2 days Chivo Rizzo MD [STAFF PHYSICIAN] - 1-2 days
[2024-07-13] MEDS: MORPHINE SULFATE 4 MG/ML SYRINGE IVP STA (04:42)
[2024-07-13] MEDS: KETOROLAC 15 MG/ML 1 ML VIAL IVP STA (04:48)
[2024-07-13] MEDS: PANTOPRAZOLE 40 MG/10 ML VIAL IVP STA (04:55)
[2024-07-13] MEDS: ONDANSETRON 4 MG/2 ML VIAL IVP STA (05:01)
[2024-07-13] MEDS: SODIUM CHLORIDE 0.9% 1,000 ML IV STA ×3 (05:05→07:22)
[2024-07-13 05:27] LABS: ALT 31 U/L (4-49); AST 30 U/L (17-59); African American GFR (CKD) >90 (>60 ml/min/1.73 sqM); Albumin 4.1 g/dL (3.5-5.0); Alkaline Phosphatase 51 U/L (38-126); Amylase 47 U/L (30-110); Anion Gap 8 mmol/L; Blood Urea Nitrogen 14 mg/dL (9-20); Calcium 9.4 mg/dL (8.4-10.2); Carbon Dioxide 24 mmol/L (22-30); Chloride 107 mmol/L (98-107); Glucose 97 mg/dL (74-99); Lipase 118 U/L (23-300); Non-African American GFR(CKD) 79 (>60 ml/min/1.73 sqM); Potassium 4.1 mmol/L (3.5-5.1); Sodium 139 mmol/L (137-145); Total Bilirubin 0.5 mg/dL (0.2-1.3); Total Protein 6.6 g/dL (6.3-8.2)
[2024-07-13 05:43] LABS: Partial Thromboplastin Time 25.3 sec (22.0-30.0); Prothrombin Time 11.2 sec (10.0-12.5)
[2024-07-13 05:44] LABS: Basophils % (A) 0 %; Eosinophils # (A) 0.2 k/uL (0-0.7); Eosinophils % (A) 4 %; HCT 45.1 % (39.0-53.0); HGB 15.3 gm/dL (13.0-17.5); Lymphocytes # (A) 1.7 k/uL (1.0-4.8); Lymphocytes % (A) 25 %; MCH 29.6 pg (25.0-35.0); MCV 87.1 fL (80.0-100.0); Mean Platelet Volume 7.1; Monocytes # (A) 0.6 k/uL (0-1.0); Monocytes % (A) 8 %; Neutrophils # (A) 4.1 k/uL (1.3-7.7); Neutrophils % (A) 59 %; Platelet Count 236 k/uL (150-450); RBC 5.18 m/uL (4.30-5.90); RDW 13.1 % (11.5-15.5); WBC 6.9 k/uL (3.8-10.6)
[2024-07-13 06:49] VITALS: RESP 16
[2024-07-13 07:30] LABS: Appearance,Urine Clear (Clear); Bilirubin,Urine Negative (Negative); Blood,Urine Small (Negative); Color,Urine Colorless; Glucose,Urine (UA) Negative (Negative); Hyaline Casts,Urine 1 /lpf (0-2); Ketones,Urine Negative (Negative); Leukocyte Esterase,Urine Negative (Negative); Mucus,Urine Occasional /hpf; Nitrite,Urine Negative (Negative); PH, Urine 5.5 (5.0-8.0); Protein,Urine Negative (Negative); RBC,Urine 5 /hpf (0-5); Urobilinogen,Urine <2.0 mg/dL (<2.0); WBC,Urine <1 /hpf (0-5)
--- NOTE | 2024-07-13 07:46 | CT ---
EXAMINATION TYPE: CT abdomen pelvis wo con DATE OF EXAM: 07/13/2024 COMPARISON: 02/07/2017 HISTORY: 43-year-old male Pt. c/o right flank pain and blood within urine CT DLP: 849.6 mGycm. Automated exposure control for dose reduction was used. TECHNIQUE: Contiguous axial scanning of the abdomen and pelvis without IV contrast. Coronal and sagit rebecca reconstructions performed. FINDINGS: The heart is upper limits of normal in size without pericardial effusion. Hazy dependent atelectasis in the posterior lower lungs. Tiny hiatal hernia. Noncontrast appearance of the liver, gallbladder, adrenal glands, spleen, and pancreas show no gross abnormal mobility. Punctate 3 mm nonobstructive right renal calculus. Approximately 4 nonobstructive right renal calculi measuring 2 to 3 mm. There is also mild right-side d hydronephrosis with a 4 mm stone at the right UVJ. No dilated bowel, free fluid, or free air. No mesenteric or retroperitoneal lymphadenopathy. Suspect a collapsed appendix. Mild overall stool burden. Minimal proximal to mid sigmoid diverticulos is. No pericolonic inflammatory change. Bladder is urine distended. Right UVJ stone mentioned above. No abnormal fluid collection in the pelv is or pelvic lymphadenopathy. Bones: Facet arthropathy mid to lower lumbar spine. Mild degenerative disc disease lower thoracic spi ne. IMPRESSION: 1. A 4 mm stone at the right UVJ with mild obstructive uropathy. 2. Additional punctate nonobstructive 2 to 3 mm bilateral renal calculi, more numerous on the right. 3. Mild sigmoid diverticulosis without acute diverticulitis.
[2024-07-13 08:20] VITALS: BP 116/74; PULSE 81
== END 2024-07-13 08:20 | disposition home or self-care (01) ==
LOC: EC 03:24
CPT/HCPCS: 36415; 74176; 80053; 81001; 82150; 83605; 83690; 85025; 85610; 85730; 96361; 96374; 96375; 99284

== ENCOUNTER 2024-08-09 06:27 | Emergency (ER) | payer OTHER ==
[2024-08-09] MEDS: HYDROmorphone 0.5 MG/0.5 ML SYRINGE IVP STA ×3 (06:52→07:50)
[2024-08-09] MEDS: KETOROLAC 15 MG/ML 1 ML VIAL IVP STA ×2 (06:54→07:50)
[2024-08-09] MEDS: ONDANSETRON 4 MG/2 ML VIAL IVP STA (06:58)
[2024-08-09] MEDS: SODIUM CHLORIDE 0.9% 1,000 ML IV STA (06:58)
[2024-08-09 07:25] LABS: ALT 21 U/L (4-49); AST 18 U/L (17-59); African American GFR (CKD) >90 (>60 ml/min/1.73 sqM); Albumin 4.3 g/dL (3.5-5.0); Alkaline Phosphatase 49 U/L (38-126); Anion Gap 10 mmol/L; Blood Urea Nitrogen 18 mg/dL (9-20); Calcium 9.4 mg/dL (8.4-10.2); Carbon Dioxide 26 mmol/L (22-30); Chloride 103 mmol/L (98-107); Glucose 105 mg/dL (74-99); Non-African American GFR(CKD) 79 (>60 ml/min/1.73 sqM); Potassium 3.7 mmol/L (3.5-5.1); Sodium 139 mmol/L (137-145); Total Protein 6.9 g/dL (6.3-8.2)
--- NOTE | 2024-08-09 07:27 | ED ---
General Adult HPI - General Chief complaint: Abdominal Pain Stated complaint: abd pain Time Seen by Provider: 08/09/24 06:30 Source: patient, RN notes reviewed Mode of arrival: ambulatory Limitations: no limitations - History of Present Illness Initial comments: This is a 43-year-old male presenting for left back/flank pain x 1.5 hours. Patient endorses history of kidney stones, last passing a stone about 3 weeks ago. Endorses sudden onset with nausea/vomiting, sweating. States pain is currently 10 out of 10. Patient describes pain as stabbing and constant. Patient denies urinary symptoms, fever, chills. Patient denies [id number] medication use prior to arrival. MD Complaint: Kidney stone Onset/Timin -: hour(s) Location: back, left Radiation: flank Severity scale (1-10): 8 (10) - Related Data Home Medications Medication Instructions Recorded Confirmed Dextroamphetamine/Amphetamine 30 mg PO BID 02/12/22 02/12/22 [Dextroamp-Amphetamin 30 mg Tab] Previous Rx's Medication Instructions Recorded HYDROcodone/APAP 7.5-325MG [[place] 1 tab PO Q6HR PRN 3 Days #24 tab 02/12/22 7.5-325] HYDROcodone/APAP 5-325MG [[place] 1 tab PO Q6HR PRN #12 tab 07/13/24 5-325] Ibuprofen [Motrin] 600 mg PO Q8HR PRN #24 tab 07/13/24 Tamsulosin [Flomax] 0.4 mg PO DAILY #7 cap 07/13/24 Ketorolac [Toradol] 10 mg PO Q6HR #20 tab 08/09/24 Tamsulosin [Flomax] 0.4 mg PO DAILY #20 cap 08/09/24 Allergies Allergy/AdvReac Type Severity Reaction Status Date / Time Penicillins Allergy Unknown Unknown Verified 08/09/24 06:33 Childhood codeine AdvReac Unknown Itching Verified 08/09/24 06:33 meperidine HCl [From Demerol] AdvReac Unknown Itching Verified 08/09/24 06:33 Review of Systems ROS Statement: Those systems with pertinent positive or pertinent negative responses have been documented in the HPI. ROS Other: All systems not noted in ROS Statement are negative. Past Medical History Past Medical History: Hearing Disorder / Deafness Additional Past Medical History / Comment(s): HX OF VERTIGO, LEFT INGUINAL HERNIA., [place], History of Any Multi-Drug Resistant Organisms: None Reported Past Surgical History: Orthopedic Surgery Additional Past Surgical History / Comment(s): TUBES IN EARS, REPAIR RT EAR DRUM, RT ING HERNIA (CHILD), FINGER REATTACHED. Past Anesthesia/Blood Transfusion Reactions: No Reported Reaction Additional Past Anesthesia/Blood Transfusion Reaction / Comment(s): HX OF VERTIGO Past Psychological History: No Psychological Hx Reported, Anxiety Smoking Status: Never smoker Past Alcohol Use History: None Reported Past Drug Use History: None Reported - Past Family History Father Family Medical History: AFIB Additional Family Medical History / Comment(s): ablation Mother Family Medical History: Cancer, Coronary Artery Disease (CAD) Brother(s) Family Medical History: Myocardial Infarction (MA) General Exam Limitations: no limitations General appearance: alert, in no apparent distress Head exam: Present: atraumatic, normocephalic, normal inspection Eye exam: Present: normal appearance, PERRL, EOMI. Absent: scleral icterus, conjunctival injection, periorbital swelling ENT exam: Present: normal exam, mucous membranes moist Neck exam: Present: normal inspection. Absent: tenderness, meningismus, lymphadenopathy Respiratory exam: Present: normal lung sounds bilaterally. Absent: respiratory distress, wheezes, rales, rhonchi, stridor Cardiovascular Exam: Present: regular rate, normal rhythm, normal heart sounds. Absent: systolic murmur, diastolic murmur, rubs, gallop, clicks GI/Abdominal exam: Present: soft, normal bowel sounds. Absent: distended, tenderness, guarding, rebound, rigid Extremities exam: Present: normal inspection, full ROM, normal capillary refill. Absent: tenderness, pedal edema, joint swelling, calf tenderness Back exam: Present: normal inspection, CVA tenderness (L) Neurological exam: Present: alert, oriented X3, CN II-XII intact Psychiatric exam: Present: normal affect, normal mood Skin exam: Present: warm, dry, intact, normal color. Absent: rash Course Vital Signs 08/09/24 08/09/24 08/09/24 06:33 07:30 07:47 Temperature 97.6 F 97.6 F 97.0 F L Pulse Rate 75 64 64 Respiratory 26 H 26 H 19 Rate Blood Pressure 134/76 145/96 134/92 O2 Sat by Pulse 100 98 99 Oximetry 08/09/24 08/09/24 09:00 10:00 Temperature Pulse Rate 70 77 Respiratory 18 18 Rate Blood Pressure 133/93 124/84 O2 Sat by Pulse 97 Oximetry Medical Decision Making - Medical Decision Making Was pt. sent in by a medical professional or institution (, [facility], SPEEDOMETER INSPECTOR, urgent care, hospital, or retirement...) When possible be specific @ -No Did you speak to anyone other than the patient for history (EMS, parent, family, police, friend...)? What history was obtained from this source @ -No Did you review nursing and triage notes (agree or disagree)? Why? @ -I reviewed and agree with nursing and triage notes Were old charts reviewed (outside hosp., previous admission, EMS record, old EKG, old radiological studies, urgent care reports/EKG's, retirement records)? Report findings @ -No old charts were reviewed Differential Diagnosis (chest pain, altered mental status, abdominal pain women, abdominal pain men, vaginal bleeding, weakness, fever, dyspnea, syncope, headache, dizziness, GI bleed, back pain, seizure, CVA, palpatations, mental health, musculoskeletal)? @ -Differential Abdominal Pain Men: Appendicitis, cholecystitis, diverticulosis, ischemic bowel, pancreatitis, hepatitis, UTI, gastroenteritis, AAA, incarcerated hernia, bowel obstruction, constipation, inflammatory bowel, hepatitis, peptic ulcer disease, splenic infarction, perforated viscus, testicular torsion, nephrolithiasis, UTI, pyelon ephritis, hydronephrosis this is not meant to be an all-inclusive list EKG interpreted by me (3pts min.). @ -None done X-rays interpreted by me (1pt min.). @ -KUB reveals no obvious nephrolithiasis. CT interpreted by me (1pt min.). @ -Abdominal CT reveals 3 mm nephrolithiasis obstructing proximal ureter with mild hydronephrosis according to radiologist. U/S interpreted by me (1pt. min.). @ -None done What testing was considered but not performed or refused? (CT, X-rays, U/S, labs)? Why? @ -None What meds were considered but not given or refused? Why? @ -None Did you discuss the management of the patient with other professionals (professionals i.e. Dr., PA, SPEEDOMETER INSPECTOR, lab, RT, psych nurse, social media content specialist, postal sorting officer, teacher, sales promotion officer, skilled nursing case manager)? Give summary @ -No Was smoking cessation discussed for >3mins.? @ -No Was critical care preformed (if so, how long)? @ -No Were there social determinants of health that impacted care today? How? (Homelessness, low income, unemployed, alcoholism, drug addiction, transportation, low edu. Level, literacy, decrease access to med. care, [facility], rehab)? @ -No Was there de-escalation of care discussed even if they declined (Discuss DNR or withdrawal of care, Hospice)? DNR status @ -No What co-morbidities impacted this encounter? (DM, HTN, Smoking, COPD, CAD, Cancer, CVA, ARF, Chemo, Hep., AIDS, mental health diagnosis, sleep apnea, morbid obesity)? @ -None Was patient admitted / discharged? Hospital course, mention meds given and route, prescriptions, significant lab abnormalities, going to OR and other pertinent info. @ -Discharge. Patient given 1000 mL normal saline bolus, total of 30 mg Toradol IV, total of 2 mg Dilaudid before noting some pain relief. Patient sent home with ketorolac and Flomax p.o. as directed. Advised increased fluid intake. Advised follow-up with urology/nephrology. Undiagnosed new problem with uncertain prognosis? @ -No Drug Therapy requiring intensive monitoring for toxicity (Heparin, Nitro, Insulin, Cardizem)? @ -No Were any procedures done? @ -No Diagnosis/symptom? @ -Obstructing nephrolithiasis. Acute, or Chronic, or Acute on Chronic? @ -Acute Uncomplicated (without systemic symptoms) or Complicated (systemic symptoms)? @ -Uncomplicated Side effects of treatment? @ -No Exacerbation, Progression, or Severe Exacerbation? @ -Exacerbation Poses a threat to life or bodily function? How? (Chest pain, [place], MA, pneumonia, PE, COPD, DKA, ARF, appy, cholecystitis, CVA, Diverticulitis, Homicidal, Suicid al, threat to staff... and all critical care pts) @ -No - Lab Data Result diagrams: 08/09/24 06:50 08/09/24 06:50 Lab Results 08/09/24 08/09/24 08/09/24 Range/Units 06:50 06:50 09:41 WBC 11.0 H (3.8-10.6) k/uL RBC 5.48 (4.30-5.90) m/uL Hgb 16.1 (13.0-17.5) gm/dL Hct 48.5 (39.0-53.0) % MCV 88.5 (80.0-100.0) fL MCH 29.3 (25.0-35.0) pg MCHC 33.1 (31.0-37.0) g/dL RDW 13.3 (11.5-15.5) % Plt Count 351 (150-450) k/uL MPV 6.7 Neutrophils % 47 % Lymphocytes % 41 % Monocytes % 5 % Eosinophils % 1 % Basophils % 1 % Neutrophils # 5.1 (1.3-7.7) k/uL Lymphocytes # 4.5 (1.0-4.8) k/uL Monocytes # 0.6 (0-1.0) k/uL Eosinophils # 0.1 (0-0.7) k/uL Basophils # 0.1 (0-0.2) k/uL Manual Slide Review Performed Sodium 139 (137-145) mmol/L Potassium 3.7 (3.5-5.1) mmol/L Chloride 103 (98-107) mmol/L Carbon Dioxide 26 (22-30) mmol/L Anion Gap 10 mmol/L BUN 18 (9-20) mg/dL Creatinine 1.13 (0.66-1.25) mg/dL Est GFR (CKD-EPI)AfAm >90 (>60 ml/min/1.73 sqM) Est GFR (CKD-EPI)NonAf 79 (>60 ml/min/1.73 sqM) Glucose 105 H (74-99) mg/dL Calcium 9.4 (8.4-10.2) mg/dL Total Bilirubin 1.0 (0.2-1.3) mg/dL AST 18 (17-59) U/L ALT 21 (4-49) U/L Alkaline Phosphatase 49 (38-126) U/L Total Protein 6.9 (6.3-8.2) g/dL Albumin 4.3 (3.5-5.0) g/dL Urine Color Yellow Urine Appearance Cloudy (Clear) Urine pH 6.0 (5.0-8.0) Ur Specific [place] 1.029 (1.001-1.035) Urine Protein Trace H (Negative) Urine Glucose (UA) Trace H (Negative) Urine Ketones Negative (Negative) Urine Blood Moderate H (Negative) Urine Nitrite Negative (Negative) Urine Bilirubin Negative (Negative) Urine Urobilinogen <2.0 (<2.0) mg/dL Ur Leukocyte Esterase Negative (Negative) Urine RBC 14 H (0-5) /hpf Urine WBC 1 (0-5) /hpf Ur Squamous Epith Cells <1 (0-4) /hpf Amorphous Sediment Rare H (None) /hpf Urine Mucus Many H (None) /hpf Disposition Clinical Impression: Nephrolithiasis Disposition: HOME SELF-CARE Condition: Good Prescriptions: Tamsulosin [Flomax] 0.4 mg PO DAILY #20 cap Ketorolac [Toradol] 10 mg PO Q6HR #20 tab Is patient prescribed a controlled substance at d/c from ED?: No Referrals: Jasmina Erwin MD [Primary Care Provider] - 1-2 days Time of Disposition: 09:21
[2024-08-09 07:32] LABS: Basophils # (A) 0.1 k/uL (0-0.2); Basophils % (A) 1 %; Eosinophils # (A) 0.1 k/uL (0-0.7); Eosinophils % (A) 1 %; HCT 48.5 % (39.0-53.0); HGB 16.1 gm/dL (13.0-17.5); Lymphocytes # (A) 4.5 k/uL (1.0-4.8); Lymphocytes % (A) 41 %; MCH 29.3 pg (25.0-35.0); MCHC 33.1 g/dL (31.0-37.0); MCV 88.5 fL (80.0-100.0); Mean Platelet Volume 6.7; Monocytes # (A) 0.6 k/uL (0-1.0); Monocytes % (A) 5 %; Neutrophils # (A) 5.1 k/uL (1.3-7.7); Neutrophils % (A) 47 %; Platelet Count 351 k/uL (150-450); RBC 5.48 m/uL (4.30-5.90); RDW 13.3 % (11.5-15.5)
--- NOTE | 2024-08-09 08:00 | XR ---
EXAMINATION TYPE: XR KUB portable DATE OF EXAM: 08/09/2024 COMPARISON: NONE HISTORY: Pain TECHNIQUE: Single supine KUB image of the abdomen is obtained FINDINGS: Small bowel demonstrates no evidence for dilatation or air fluid levels. Gas and fecal material is seen in non-distended colon. No convincing evidence for pneumoperitoneum. No unusual calcifications. The lung bases are clear. The osseous structures are intact. IMPRESSION: 1. Overall nonobstructive bowel gas pattern. [facility], , 08/09/2024 7:58 AM
--- NOTE | 2024-08-09 08:48 | CT ---
EXAMINATION TYPE: CT abdomen pelvis wo con CT DLP: 767.7 mGycm, Automated exposure control for dose reduction was used. DATE OF EXAM: 08/09/2024 8:26 AM COMPARISON: CT abdomen pelvis most recent from 07/13/2024 CLINICAL INDICATION: Male, 43 years old with history of Left back/flank pain, history of nephrolithia sis; LEFT FLANK PAIN TECHNIQUE: Axial CT abdomen pelvis wo con;Sagittal and coronal reformats were created on a separate workstation. Contrast used: mL of , (none if empty) Oral contrast used: without Oral Contrast (none if empty) FINDINGS: LOWER CHEST: Unremarkable ABDOMEN LIVER: Unremarkable GALLBLADDER AND BILE DUCTS: Unremarkable. PANCREAS: Unremarkable. SPLEEN: Unremarkable. ADRENAL GLANDS: Unremarkable. KIDNEYS AND URETERS: Mild left hydronephrosis secondary to obstructing calculus at the ureterovesicul ar junction measuring 3 mm. No right hydronephrosis. Nonobstructing right renal calculusr measuring u p to 3 mm. PELVIS BLADDER: Unremarkable REPRODUCTIVE: Unremarkable. ABDOMEN & PELVIS STOMACH AND BOWEL: No evidence of bowel obstruction. PERITONEUM/RETROPERITONEUM: No evidence of pneumoperitoneum or free fluid. VASCULATURE: No evidence of aortic aneurysm. MUSCULOSKELETAL: No acute osseous abnormalities LYMPH NODES: No gross evidence for lymphadenopathy. SOFT TISSUE/ABDOMINAL WALL: Fat-containing left inguinal hernia. IMPRESSION: Mild left hydronephrosis secondary to obstructing calculus at the ureterovesicular junction measuring 3 mm [facility], , 08/09/2024 8:46 AM
[2024-08-09 09:07] VITALS: RESP 18
[2024-08-09] MEDS ORDERED: ONDANSETRON 4 MG/2 ML VIAL IVP PRN (09:08)
[2024-08-09] MEDS: HYDROmorphone 1 MG/ML 1 ML SYRINGE IVP PRN (09:37)
[2024-08-09 10:15] VITALS: PULSE 77
[2024-08-09 11:20] LABS: Amorphous Sediment,Urine Rare /hpf; Appearance,Urine Cloudy (Clear); Bilirubin,Urine Negative (Negative); Blood,Urine Moderate (Negative); Color,Urine Yellow; Glucose,Urine (UA) Trace (Negative); Ketones,Urine Negative (Negative); Leukocyte Esterase,Urine Negative (Negative); Mucus,Urine Many /hpf; Nitrite,Urine Negative (Negative); Protein,Urine Trace (Negative); RBC,Urine 14 /hpf (0-5); Specific Gravity,Urine 1.029 (1.001-1.035); Squamous Epithelial Cell,Urine <1 /hpf (0-4); Urobilinogen,Urine <2.0 mg/dL (<2.0); WBC,Urine 1 /hpf (0-5)
[2024-08-09 11:32] VITALS: BP 114/74; TEMP 97.7
== END 2024-08-09 11:50 | disposition home or self-care (01) ==
LOC: EC 06:27
CPT/HCPCS: 36415; 74018; 74176; 80053; 81001; 85025; 96361; 96374; 96375; 96376; 99285